=== PATIENT | male | born 1965 | race Caucasian/White ===

== ENCOUNTER → 2023-03-31 08:31 | Outpatient (CLI) | payer OTHER, SELFPAY ==
--- NOTE | ~2023-03-31 | MR_ITS ---
MRI of the left ankle Clinical history: Peroneal tendon rupture Technique: Coronal proton-density and proton-density fat-sat images, axial proton-density and proton- density fat-sat images, and sagittal proton-density and proton-density fat-sat images were acquired. Findings: Syndesmotic ligaments are intact. Anterior and posterior talofibular ligaments, and calcane ofibular ligament are intact. Deltoid ligament is intact. Medial flexor tendons, anterior extensor tendons, and Achilles tendon are intact. Peroneus brevis ten don is intact. There is complete rupture of the peroneus longus tendon, which is retracted just super ior to the lateral malleolus/distal fibula, with somewhat wavy morphology of the distal tendon. There is no osteochondral lesion of the talar dome. 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 There is reactive marrow edema and central congestive change. R emaining bone marrow signals are unremarkable. Plantar fascia is intact. Normal signal preserved in the sinus Tarsi. Impression: Complete rupture of the peroneus longus tendon with retraction to the distal fibula, as detailed abov e. Moderate to advanced degenerative change of the second and third tarsal metatarsal joints. Moderate d egenerative change of the fourth and fifth tarsal metatarsal joints. Reviewed, dictated and finalized at location . [facility] [employer] Impression: Complete rupture of the peroneus longus tendon with retraction to the distal fi bula, as detailed above. Moderate to advanced degenerative change of the second and third tarsal metatar jordon joints. Moderate degenerative change of the fourth and fifth tarsal metatar jordon joints.
--- NOTE | ~2023-03-31 | MR_ITS ---
MRI of the left foot Clinical history left peroneal tendon rupture TECHNIQUE: Sagittal T1-weighted and STIR images, axial proton-density and proton-density fat-sat imag es, and coronal T1-weighted and proton-density fat-sat images were acquired. FINDINGS: Bone marrow signals are unremarkable. No marrow edema, fracture, or osteomyelitis identifie d. Joint spaces are preserved without significant degenerative change. No significant joint effusion identified. The distal peroneus longus tendon is completely ruptured near its distal insertion, with retraction b eyond the [id number] of this exam. Remaining visualized tendons are intact. Plantar fascia is inta ct. Visualized musculature unremarkable. IMPRESSION: Complete rupture of the very distal peroneus longus tendon, which is retracted proximally, beyond the [id number] of this exam. Please refer to separately reported ankle MR for further details. Reviewed, dictated and finalized at location . [employer] IMPRESSION: Complete rupture of the very distal peroneus longus tendon, which is retracted proximally, beyond the [id number] of this exam. Please refer to separately r eported ankle MR for further details.
== END ==
PROVIDERS: PCP Podiatrist Foot & Ankle Surgery; Visit Provider Podiatrist Foot & Ankle Surgery
DX: S86.312D Strain of muscle(s) and tendon(s) of peroneal muscle group at lower leg level, left leg, subsequent encounter (principal); M19.072 Primary osteoarthritis, left ankle and foot; X58.XXXD Exposure to other specified factors, subsequent encounter
CPT/HCPCS: 73718; 73721